=== PATIENT | female | born 1945 | race Caucasian/White ===

== ENCOUNTER 2017-08-15 10:17 | Emergency (ER) | payer MEDICARE, BC ==
[~2017-08-15] VITALS: Ht 162.6 cm; Wt 56.7 kg
--- NOTE | 2017-08-15 10:35 | NUR ---
PRESENTS TO ER C/O LEFT SIDED TINGLING AND WEAKNESS SINCE FRIDAY. A/OX 4. BREATHING EVEN AND UNLABORED. NO SOB, NO NEURO DEFICITS. VITALS STABLE. SAFETY AND COMFORT MEASURES IN PLACE. AWAITING MD ORDERS.
--- NOTE | 2017-08-15 10:46 | NUR ---
NEW IV STARTED ON RAC, 18 G. BLOOD DRAWN AND SENT TO LAB.
[2017-08-15 10:47] LABS: BASOPHILS % (AUTO) 0.5 % (0.0-2.0); EOSINOPHILS % (AUTO) 0.6 % (0.0-6.0); HEMATOCRIT 39 % (33-45); HEMOGLOBIN 13.3 g/dL (11.5-14.8); LYMPHOCYTES % (AUTO) 32.2 % (20.0-44.0); MEAN CORPUSCULAR HEMOGLOBIN 32 PG (26.0-33.0); MEAN CORPUSCULAR HGB CONC 34 g/dl (31.0-36.0); MEAN CORPUSCULAR VOLUME 96 fL (82-100); MONOCYTES # (AUTO) 0.8 /CMM (0.1-1.30); MONOCYTES % (AUTO) 13.4 % (2.0-12.0); NEUTROPHILS # (AUTO) 3.3 /CMM (1.8-8.9); NEUTROPHILS % (AUTO) 53.3 % (43.0-81.0); PLATELET COUNT (AUTO) 317 /CMM (150-450); RED BLOOD CELL COUNT(AUTO) 4.13 MIL/uL (4.0-5.2); WHITE BLOOD COUNT (AUTO) 6.1 K/uL (4.3-11.0)
[2017-08-15 10:58] LABS: CALCIUM, SERUM 9.2 mg/dL (8.5-10.1); CARBON DIOXIDE 27 mmol/L (21-32); CHLORIDE 99 mmol/L (98-107); CREATININE 0.9 mg/dL (0.6-1.3); GLUCOSE 113 mg/dL (74-106); POTASSIUM 3.6 mmol/L (3.5-5.1); SODIUM SERUM 133 mmol/L (136-145); UREA NITROGEN, BLOOD 12 mg/dL (7-18)
[2017-08-15 11:01] LABS: INR 0.91 (0.87-1.13); PROTHROMBIN TIME 9.5 SECS (9.5-12.7)
[2017-08-15] MEDS ORDERED: IV NS 0.9% 250 ML IV ONE (11:01)
[2017-08-15] MEDS ORDERED: IOHEXOL-350 100 ML VIAL IV ONE (11:01)
[2017-08-15] MEDS ORDERED: CT SWABBABLE VALVE TRANS SET 1 EA INFUS.SET MC ONE (11:04)
[2017-08-15 11:05] LABS: TROPONIN I < 0.017 ng/mL (0.00-0.056)
--- NOTE | 2017-08-15 11:20 | NUR ---
patient taken to ct via stretcher.
--- NOTE | 2017-08-15 11:35 | NUR ---
patient returned from ct in stable condition.
--- NOTE | 2017-08-15 12:05 | NUR ---
CLOTH SHRINKING TESTER AT BEDSIDE.
[2017-08-15 13:20] VITALS: BP 142/81
--- NOTE | 2017-08-15 13:21 | NUR ---
IV removed. Catheter intact and site benign. Pressure and 4x4 applied to site. No bleeding noted. Patient discharged to home in stable condition. Written and verbal after care instructions given. Patient verbalizes understanding of instruction.
== END 2017-08-15 13:21 | disposition home or self-care (01) ==
LOC: ER 10:18
DX: G62.9 Polyneuropathy, unspecified (principal)
CPT/HCPCS: 36415; 70450; 70496; 70498; 71010; 80048; 82962; 84484; 85025; 85730; 93005; 99285; A4606; J7050; Q9967; Z7610